=== PATIENT | female | born 1960 | race Hispanic/Latino ===

== ENCOUNTER 2017-08-14 11:47 | Outpatient (CLI) | payer MEDICAID ==
--- NOTE | 2017-08-14 12:24 | XRay Report ---
CHEST XRAY, 2 VIEWS: History: Shortness of breath. Findings: There is mild diffuse interstitial coarsening. The lungs are hyperexpanded but clear. No infiltrate, pleural fluid or pneumothorax is detected. The cardiac silhouette and pulmonary vasculature are within normal limits for technique. The bony thorax is unremarkable. A small to medium hiatal hernia is identified. IMPRESSION: Changes consistent with COPD. hiatal hernia. No acute cardiopulmonary process.
== END 2017-08-14 11:48 | disposition home or self-care (01) ==
LOC: XRAY 11:47
PROVIDERS: ATTEND Nurse Practitioner
DX: K44.9 Diaphragmatic hernia without obstruction or gangrene (principal); R06.02 Shortness of breath; F17.210 Nicotine dependence, cigarettes, uncomplicated; E78.00 Pure hypercholesterolemia, unspecified; K21.9 Gastro-esophageal reflux disease without esophagitis; Z90.710 Acquired absence of both cervix and uterus; E06.9 Thyroiditis, unspecified
CPT/HCPCS: 71046

== ENCOUNTER 2018-09-11 09:22 | Outpatient (CLI) | payer MEDICAID ==
[2018-09-11 12:03] LABS: Hematocrit 41.1 % (30.3-42.9); Hemoglobin 13.7 gm/dl (10.1-14.3); Mean Corpuscular HGB Conc 33 % (30-34); Mean Corpuscular Volume 89 fl (79-97); Platelet Count 255 K/mm3 (140-440); Red Blood Count 4.61 M/mm3 (3.65-5.03); Red Cell Distribution Width 16.3 % (13.2-15.2)
[2018-09-11 12:15] LABS: Alanine Aminotransferase 10 units/L (7-56); Albumin 4.3 g/dL (3.9-5); BUN/Creatinine Ratio 30; Blood Urea Nitrogen 24 mg/dL (7-17); Calcium 9.3 mg/dL (8.4-10.2); Chol/HDL Ratio 2.27 %; HDL Cholesterol 77 mg/dL (40-59); Hemolysis Index 2; LDL Cholesterol,Direct 87 mg/dL (50-130)
[2018-09-11 12:31] LABS: Erythrocyte Sedimentation Rate 3 mm/Hr (0-20)
[2018-09-14 05:52] LABS: Vitamin D, 25-OH, D2 <4 ng/mL
[2018-09-15 12:36] LABS: ANA Screen, IFA Negative (Negative)
== END 2018-09-11 09:23 | disposition home or self-care (01) ==
LOC: LAB 09:22
PROVIDERS: ATTEND Internal Medicine
DX: Z13.21 Encounter for screening for nutritional disorder (principal); Z13.1 Encounter for screening for diabetes mellitus; M13.0 Polyarthritis, unspecified; E03.9 Hypothyroidism, unspecified; R68.2 Dry mouth, unspecified; E78.5 Hyperlipidemia, unspecified; E78.00 Pure hypercholesterolemia, unspecified; K21.9 Gastro-esophageal reflux disease without esophagitis; Z90.710 Acquired absence of both cervix and uterus
CPT/HCPCS: 36415; 80053; 80061; 82306; 82607; 83036; 84443; 85027; 85652; 86038; 86140; 86200; 86618

== ENCOUNTER 2018-12-24 11:35 | Outpatient (CLI) | payer MEDICAID ==
[2018-12-24 12:41] LABS: Chol/HDL Ratio 2.36 %
[2018-12-27 14:06] LABS: Vitamin D, 25-OH, D2 <4 ng/mL
== END 2018-12-24 11:36 | disposition home or self-care (01) ==
LOC: LAB 11:35
PROVIDERS: ATTEND Internal Medicine
DX: E78.5 Hyperlipidemia, unspecified (principal); E03.9 Hypothyroidism, unspecified; E55.9 Vitamin D deficiency, unspecified; E78.00 Pure hypercholesterolemia, unspecified; K21.9 Gastro-esophageal reflux disease without esophagitis; Z90.710 Acquired absence of both cervix and uterus
CPT/HCPCS: 36415; 80061; 82306; 84443